=== PATIENT | female | born 1950 | race African-American/Black ===

== ENCOUNTER 2017-06-17 13:57 | Emergency (ER) | payer MEDICARE, MEDICAID ==
[~2017-06-17 13:57] MED LIST: AMLO5TAB2 PO; ESTR0.5T PO; LISI20TA PO; METH5TAB4 PO
[2017-06-17 14:00] VITALS: BP 191/86; PULSE 75; RESP 18; TEMP 98.7; O2SAT 99
--- NOTE | 2017-06-17 15:34 | RADRPT ---
EXAM DATE/TIME: 06/17/2017 15:23 [place] COMPARISON: No previous studies available for comparison. INDICATIONS : Box fell on head three days ago, complains of headache RADIATION DOSE: 56.77 CTDIvol (mGy) MEDICAL HISTORY : Hypertension. Hyperthyroidism. SURGICAL HISTORY : Hysterectomy. ENCOUNTER: Initial ACUITY: 3 days PAIN SCALE: 7/10 LOCATION: cranial TECHNIQUE: Multiple contiguous axial images were obtained of the head. Using automated exposure control and adj ustment of the mA and/or kV according to patient size, radiation dose was kept as low as reasonably a chievable to obtain optimal diagnostic quality images. DICOM format image data is available electro nically for review and comparison. FINDINGS: CEREBRUM: The ventricles are normal for age. No evidence of midline shift, mass lesion, hemorrhage or acute in farction. No extra-axial fluid collections are seen. POSTERIOR FOSSA: The cerebellum and brainstem are intact. The 4th ventricle is midline. The cerebellopontine angle i s unremarkable. EXTRACRANIAL: The visualized portion of the orbits is intact. SKULL: The calvaria is intact. No evidence of skull fracture. CONCLUSION: No acute disease. Laron Vincent MD on June 17, 2017 at 15:31 Board Certified Radiologist. This report was verified electronically.
--- NOTE | 2017-06-17 15:59 | PD ---
HPI Chief Complaint: Head Injury Time Seen by Provider: 15:20 Travel History International Travel<30 days: No Contact w/Intl Traveler<30days: No Traveled to known affect area: No History of Present Illness HPI 66-year-old female presents to the ED for evaluation of intermittent headaches. Headaches are described as on the top of her head and behind the left ear. Rated 6/10 maximally. Patient denies associated vision changes, photophobia, dizziness, nausea, vomiting. She states that the headaches were onset after a package fell from a top of a rack at [facility] and hit her in the head. She denies loss of consciousness at the time. She treated at home with ibuprofen with no improvement of symptoms. She states that she went to urgent care and was instructed to come to the ED for a CT. PFSH Past Medical History Cardiovascular Problems: Yes (HTN) Social History Tobacco Use: No Allergies-Medications (Allergen,Severity, Reaction): Coded Allergies: latex (Verified Allergy, Severe, hives, 06/17/17) Reported Meds & Prescriptions Reported Meds & Active Scripts Active Naproxen 500 Mg Tab 500 Mg PO BID Estradiol 0.5 Mg Tab 0.5 Mg PO DAILY Amlodipine (Amlodipine Besylate) 5 Mg Tab 5 Mg PO DAILY Lisinopril-Hctz 20-12.5 Mg Tab 1 Tab PO DAILY Methimazole 5 Mg Tab 5 Mg PO DAILY Review of Systems Except as stated in HPI: all other systems reviewed are Neg Physical Exam Narrative GENERAL: Well-nourished, well-developed female in no acute distress. SKIN: Warm and dry. Thorough evaluation reveals no edema, ecchymosis, abrasion , or laceration of the skin. HEAD: Normocephalic. Atraumatic. No raccoon eyes or ndiaye sign. + tenderness to palpation of the top of the skull.. No bony step-offs. No malocclusion of the teeth. EYES: No scleral icterus. No injection or drainage. PERRLA. EOMI. ENT: Pearly wade tympanic membranes bilaterally. Nasal mucosa is moist. Oropharynx without erythema, edema or exudate. NECK: Supple, trachea midline. No JVD or lymphadenopathy. No midline tenderness to palpation. Patient retains full, active, painless range of motion of the neck. CARDIOVASCULAR: Regular rate and rhythm without murmurs, gallops, or rubs. RESPIRATORY: Breath sounds clear and equal bilaterally. No accessory muscle use. GASTROINTESTINAL: Abdomen soft, non-tender, nondistended. + Bowel sounds MUSCULOSKELETAL: No cyanosis, or edema. No tenderness to palpation or limitations to range of motion of the joints of the upper and lower extremities bilaterally. NEUROLOGICAL: Awake and alert. Cranial nerves II through XII intact. Motor and sensory grossly within normal limits. 5/5 muscle strength in all muscle groups. Normal speech. BACK: Nontender without obvious deformity. No CVA tenderness. No midline tenderness. Data Data Last Documented VS Vital Signs Date Time Temp Pulse Resp B/P (MAP) Pulse Ox O2 Delivery O2 Flow Rate FiO2 06/17/17 14:00 98.7 75 18 191/86 (121) [address] Brain W/O Iv Contrast(Rout) (06/17/17 ) Naproxen Sodium (Anaprox Ds) (06/17/17 16:15) Ed Discharge Order (06/17/17 16:09) MDM Medical Decision Making Medical Screen Exam Complete: Yes Emergency Medical Condition: Yes Differential Diagnosis Posttraumatic headache versus cephalgia versus closed head injury versus intrusion versus other Narrative Course 66-year-old female presents to the ED for evaluation of intermittent headaches. Headaches are described as on the top of her head and behind the left ear. Patient denies associated vision changes, photophobia, dizziness, nausea, vomiting. She states that the headaches were onset after a package fell from a top of a rack at [facility] and hit her in the head. No LOC. Vitals reviewed. Physical exam reveals tenderness to palpation on the top of the skull but is otherwise unremarkable. No focal neuro deficits noted. CT reveals no acute disease per radiology read. This is closed head injury with cephalgia. Patient was prescribed a short course of anti-inflammatories, first dose administered in the ED. We discussed the variable course of posttraumatic headache. We discussed red flag symptoms and reasons to return to the ED. The patient was instructed to take the anti-inflammatories at first sign of headache , avoid known triggers, follow with the primary care provider. She indicated understanding of the instructions and is agreeable to the care plan. She was provided a copy of the CT report. She is stable and discharged home. Diagnosis Primary Impression: Closed head injury Qualified Codes: S09.90XA - Unspecified injury of head, initial encounter Additional Impression: Cephalgia Qualified Codes: R51 - Headache Referrals: Primary Care Physician Patient Instructions: Chronic Post Traumatic Headache (ED), General Instructions Additional Instructions: Rest, hydrate. Avoid known stressors and headache triggers as possible. Take anti-inflammatory medications at first sign of headache as discussed. Follow up with her primary care provider. Return to the ED for worsening symptoms or any urgent or emergent medical condition. Med/Other Pt SpecificInfo: Prescription(s) given Scripts Naproxen (Naproxen) 500 Mg Tab 500 MG PO BID for Headaches, #10 TAB 0 Refills Prov: Mynor Meng MD 06/17/17 Disposition: 01 DISCHARGE HOME Condition: Stable Lena Srinivasan Jun 17, 2017 15:59
[2017-06-17] MEDS ORDERED: NAPR500T2 PO (16:02)
[2017-06-17] MEDS ORDERED: NAPROXEN SODIUM 550 MG TAB PO ONE (16:15)
== END 2017-06-17 16:26 | disposition home or self-care (01) ==
LOC: NEPK 13:57
DX: S09.90XA Unspecified injury of head, initial encounter (principal); G44.309 Post-traumatic headache, unspecified, not intractable; I10 Essential (primary) hypertension; W20.8XXA Other cause of strike by thrown, projected or falling object, initial encounter; Y92.512 Supermarket, store or market as the place of occurrence of the external cause
CPT/HCPCS: 70450